=== PATIENT | male | born 1950 | race Caucasian/White ===

== ENCOUNTER → 2020-09-15 | Outpatient (REF) | payer MEDICARE, BC ==
[2020-09-15 12:04] LABS: APPEARANCE, URINE CLEAR (CLEAR); BACTERIA, URINE AUTO NEGATIVE (NEGATIVE); BILIRUBIN, URINE AUTO NEGATIVE (NEGATIVE); BLOOD, URINE BLOOD NEGATIVE (NEGATIVE); COLOR, URINE YELLOW (YELLOW); GLUCOSE, URINE (UA) AUTO NEGATIVE (NEGATIVE); KETONE, URINE AUTO NEGATIVE (NEGATIVE); LEUKOCYTE ESTERASE, URINE AUTO NEGATIVE (NEGATIVE); NITRITE, URINE AUTO NEGATIVE (NEGATIVE); PROTEIN, URINE AUTO NEGATIVE (NEGATIVE); RBC, URINE AUTO 1 /HPF (0-3); SPECIFIC GRAVITY URINE AUTO 1.016 (1.002-1.035); SQUAMOUS EPITHELIAL CELL UR AU 0 /HPF (0-6); UROBILINOGEN, URINE AUTO 0.2 mg/dL (0.0-2.0); WBC, URINE AUTO 1 /HPF (0-3)
== END ==
LOC: M LAB REF 11:45
PROVIDERS: ATTEND Internal Medicine
DX: Z01.818 Encounter for other preprocedural examination (principal); N39.0 Urinary tract infection, site not specified

== ENCOUNTER → 2022-02-26 | Outpatient (REF) | payer MEDICARE, BC | LOC: M LAB REF 16:15 | PROVIDERS: ATTEND Internal Medicine | DX: M25.50 Pain in unspecified joint (principal) ==

== ENCOUNTER → 2022-03-05 | Outpatient (CLI) | payer MEDICARE, BC | LOC: M WUC 08:03 | PROVIDERS: ATTEND Internal Medicine | DX: M79.642 Pain in left hand (principal); M79.641 Pain in right hand; M19.031 Primary osteoarthritis, right wrist; M19.032 Primary osteoarthritis, left wrist ==

== ENCOUNTER → 2022-03-09 | Outpatient (CLI) | payer MEDICARE, BC ==
[2022-03-09 12:17] LABS: BASO # 0.1 10^3/uL (0.0-0.2); BASO % 1.4 % (0.0-1.0); EOS # 0.3 10^3/uL (0.0-0.5); EOS % 3.2 % (0.0-3.0); HEMATOCRIT 50.6 % (42.0-52.0); HEMOGLOBIN 16.4 g/dl (13.5-17.5); LYMPH # 1.9 10^3/uL (1.5-5.0); LYMPH % 19.9 % (24.0-44.0); MEAN CORPUSCULAR HEMOGLOBIN 29.3 pg (27.0-33.0); MEAN CORPUSCULAR HGB CONC 32.4 g/dl (32.0-36.5); MEAN CORPUSCULAR VOLUME 90.4 fl (80.0-96.0); MONO % 10.6 % (2.0-8.0); NEUTROPHILS % 64.3 % (36.0-66.0); PLATELET COUNT, AUTOMATED 254 10^3/uL (150-450); WHITE BLOOD COUNT 9.4 10^3/uL (4.0-10.0)
[2022-03-09 12:46] LABS: ALBUMIN 3.9 GM/DL (3.2-5.2); ALT/SGPT 77 U/L (12-78); BILIRUBIN,TOTAL 0.5 MG/DL (0.2-1.0); BLOOD UREA NITROGEN 16 MG/DL (7-18); CALCIUM LEVEL 9.5 MG/DL (8.8-10.2); CARBON DIOXIDE LEVEL 29 MEQ/L (21-32); CHLORIDE LEVEL 104 MEQ/L (98-107); CREATININE FOR GFR 0.74 MG/DL (0.70-1.30); GLOMERULAR FILTRATION RATE > 60.0 (>49); GLUCOSE, FASTING 96 MG/DL (70-100); POTASSIUM SERUM 4.1 MEQ/L (3.5-5.1); SODIUM LEVEL 137 MEQ/L (136-145); TOTAL PROTEIN 7.8 GM/DL (6.4-8.2)
[2022-03-09 13:46] LABS: HEPATITIS B SURFACE ANTIGEN NEGATIVE (NEGATIVE)
[2022-03-09 14:11] LABS: HEPATITIS C VIRUS ABY INDEX < 0.0 INDEX (<0.8)
[2022-03-09 14:13] LABS: HEPATITIS B CORE ANTIBODY IGM NEGATIVE (NEGATIVE)
[2022-03-09 14:14] LABS: HIV 1&2 SCREEN CENTAUR NEGATIVE (NEGATIVE)
== END ==
LOC: M LAB 10:43
PROVIDERS: ATTEND Nurse Practitioner Family
DX: L40.9 Psoriasis, unspecified (principal)

== ENCOUNTER 2023-02-04 09:43 | Emergency (ER) | payer MEDICARE, BC ==
[~2023-02-04] VITALS: Ht 172.7 cm; Wt 127.3 kg
[~2023-02-04 09:43] MED LIST: PERC5TAB12 PO
[2023-02-04] MEDS ORDERED: FENO160T10 (10:24)
[2023-02-04] MEDS ORDERED: COSE1INJ4 (10:24)
[2023-02-04] MEDS ORDERED: LISI40TA4 (10:24)
[2023-02-04] MEDS ORDERED: LEVO75TA4 (10:24)
[2023-02-04] MEDS ORDERED: TRIA1CR80 (10:24)
[2023-02-04] MEDS ORDERED: CICL0.7739 (10:24)
[2023-02-04] MEDS ORDERED: CYCL-707 (10:24)
[2023-02-04] MEDS ORDERED: INDO-16 (10:24)
[2023-02-04] MEDS ORDERED: LIDOCAINE 5% (LIDODERM) PATCH TD ONE (11:30)
[2023-02-04] MEDS ORDERED: diazePAM 10MG/2ML SYRINGE IV ONE ×2 (11:30→12:50)
[2023-02-04 12:14] LABS: HEMATOCRIT 44.5 % (42.0-52.0); HEMOGLOBIN 14.8 g/dl (13.5-17.5); MEAN CORPUSCULAR HEMOGLOBIN 30.1 pg (27.0-33.0); MEAN CORPUSCULAR HGB CONC 33.3 g/dl (32.0-36.5); MEAN CORPUSCULAR VOLUME 90.6 fl (80.0-96.0); PLATELET COUNT, AUTOMATED 194 10^3/uL (150-450); RED BLOOD COUNT 4.91 10^6/uL (4.30-6.10); WHITE BLOOD COUNT 12.1 10^3/uL (4.0-10.0)
[2023-02-04 12:46] LABS: LYMPHOCYTES 5 % (16-44); MONOCYTES 8 % (0-5); NEUTROPHILS 86 % (28-66)
[2023-02-04 12:47] LABS: PLATELET ESTIMATE NORMAL (NORMAL)
[2023-02-04] MEDS ORDERED: KETOROLAC 30 MG/ML 1ML VIAL IV ONE (12:50)
[2023-02-04 12:55] LABS: ERYTHROCYTE SEDIMENTATION RATE 111 mm/hr (0-20)
[2023-02-04 13:24] LABS: BLOOD UREA NITROGEN 18 MG/DL (9-23); CALCIUM LEVEL 8.4 MG/DL (8.3-10.6); CARBON DIOXIDE LEVEL 24 MMOL/L (20-31); CHLORIDE LEVEL 99 MMOL/L (98-107); GLOMERULAR FILTRATION RATE > 60.0 (>42); GLUCOSE, FASTING 144 MG/DL (74-106); POTASSIUM SERUM 4.2 MMOL/L (3.5-5.1); SODIUM LEVEL 134 MMOL/L (136-145)
[2023-02-04] MEDS ORDERED: NS IV ONE (16:15)
[2023-02-04] MEDS ORDERED: LORazepam 1 MG TAB PO STA (17:10)
[2023-02-04] MEDS ORDERED: MORPHINE 4 MG/ML 1ML VIAL IV ONE ×2 (17:50→19:00)
[2023-02-04] MEDS ORDERED: LORazepam 2 MG TAB PO STA (19:14)
[2023-02-04 19:30] LABS: RSV AMPLIFICATION NEGATIVE (NEGATIVE)
[2023-02-04] MEDS ORDERED: fentaNYL 100 MCG/2 ML INJECTION IV ONE (20:15)
[2023-02-04] MEDS ORDERED: PANTOPRAZOLE 40MG VIAL IV ONE (20:15)
[2023-02-04] MEDS ORDERED: PROHANCE 279.3MG/ML 5ML VIAL As Ordered ONE (21:14)
[2023-02-04] MEDS ORDERED: PROHANCE 279.3MG/ML 15ML VIAL As Ordered ONE (21:14)
[2023-02-04] MEDS ORDERED: LIDOCAINE 2% 5ML JELLY UROJET TOP ONE (22:10)
[2023-02-04] MEDS ORDERED: ACETAMINOPHEN 500 MG TAB PO ONE (22:10)
[2023-02-04] MEDS ORDERED: VANCOMYCIN HCL 2,000 MG in D5W 500 ML IV ONE (23:15)
[2023-02-04] MEDS ORDERED: CEFEPIME HCL 2 GM in D5W MINI-BAG PLUS 50 ML IV ONE (23:15)
[2023-02-05] MEDS ORDERED: VANCOMYCIN HCL 1,000 MG, VIAL MATE ADAPTER 1 EACH in D5W 250 ML IV ONE ×4 (01:00)
[2023-02-05] MEDS ORDERED: HYDROMORPHONE HCL 0.5 MG/ 0.5 ML SYRINGE IV ONE (05:10)
[2023-02-05 06:34] VITALS: BP 116/55; TEMP 99; O2SAT 95
== END 2023-02-05 06:37 | disposition short-term general hospital (02) ==
LOC: EDBD 09:43 → M ED 09:43
DX: M00.88 Arthritis due to other bacteria, vertebrae (principal); M54.50 Low back pain, unspecified; I10 Essential (primary) hypertension; E78.5 Hyperlipidemia, unspecified; F17.200 Nicotine dependence, unspecified, uncomplicated; Z79.811 Long term (current) use of aromatase inhibitors; Z79.899 Other long term (current) drug therapy
CPT/HCPCS: 51702; 71045; 72131; 72148; 80048; 81001; 83605; 85025; 85652; 86140; 87040; 87077; 87088; 87186; 87631; 93041; 93971; 94760; 99285; C9113; J0692; J1170; J1885; J3010; J3360

== ENCOUNTER → 2023-03-28 | Outpatient (CLI) | payer MEDICARE, BC ==
[~2023-03-28] MED LIST changes: +CICL0.7739; +COSE1INJ4; +CYCL-707; +FENO160T10; +INDO-16; +LEVO75TA4; +LISI40TA4; +TRIA1CR80
[2023-03-28 13:54] LABS: BASO # 0.1 10^3/uL (0.0-0.2); BASO % 1.2 % (0.0-1.0); EOS # 0.3 10^3/uL (0.0-0.5); EOS % 3.5 % (0.0-3.0); HEMATOCRIT 48.3 % (42.0-52.0); HEMOGLOBIN 15.6 g/dl (13.5-17.5); LYMPH % 23.6 % (24.0-44.0); MEAN CORPUSCULAR HEMOGLOBIN 30.1 pg (27.0-33.0); MEAN CORPUSCULAR HGB CONC 32.3 g/dl (32.0-36.5); MEAN CORPUSCULAR VOLUME 93.1 fl (80.0-96.0); MONO # 0.8 10^3/uL (0.0-0.8); MONO % 9.7 % (2.0-8.0); NEUTROPHILS # 5.4 10^3/uL (1.5-8.5); NEUTROPHILS % 61.7 % (36.0-66.0); PLATELET COUNT, AUTOMATED 266 10^3/uL (150-450); RED BLOOD COUNT 5.19 10^6/uL (4.30-6.10); WHITE BLOOD COUNT 8.7 10^3/uL (4.0-10.0)
[2023-03-28 14:43] LABS: ERYTHROCYTE SEDIMENTATION RATE 65 mm/hr (0-20)
== END ==
LOC: M PLALAB 12:07 → M PLAIMG 12:07
PROVIDERS: ATTEND Internal Medicine Infectious Disease
DX: M46.47 Discitis, unspecified, lumbosacral region (principal); M51.36 Other intervertebral disc degeneration, lumbar region; M43.16 Spondylolisthesis, lumbar region

== ENCOUNTER → 2023-07-10 | Outpatient (REF) | payer MEDICARE, BC ==
[2023-07-10 18:49] LABS: PERCENT SATURATION 25.2 % (19.7-50.0)
[2023-07-10 18:52] LABS: FERRITIN 84.2 NG/ML (10.5-307.3)
== END ==
LOC: M LAB REF 17:22
PROVIDERS: ATTEND Internal Medicine
DX: D64.9 Anemia, unspecified (principal)

== ENCOUNTER 2023-11-21 06:56 | Day surgery (SDC) | payer MEDICARE, BC, OTHER ==
[~2023-11-21] VITALS: Ht 172.7 cm; Wt 123.7 kg
[~2023-11-21 06:56] MED LIST changes: +BREO1INH INH; +COSE1INJ SC; -CYCL-707; +CYCL-707 PO; -FENO160T10; +FENO160T10 PO; -LEVO75TA4; +LEVO75TA4 PO; -LISI40TA4; +LISI40TA4 PO; +METF500T13 PO; +PRIL20TA2 PO
[2023-11-21] MEDS: NS 1,000 ML IV ONE (07:32)
[2023-11-21] MEDS ORDERED: LIDOCAINE 2% 100MG/5ML SDV (FOR ANES.) As Ordered ONE (08:05)
[2023-11-21] MEDS ORDERED: propofoL 200 MG/20 ML VIAL As Ordered ONE (08:06)
[2023-11-21 09:26] VITALS: BP 111/74; O2SAT 96
== END 2023-11-21 09:45 | disposition home or self-care (01) ==
LOC: M OPP 06:56
PROVIDERS: ATTEND Internal Medicine Gastroenterology
DX: Z12.11 Encounter for screening for malignant neoplasm of colon (principal); D12.2 Benign neoplasm of ascending colon; K63.5 Polyp of colon; K64.8 Other hemorrhoids; K57.30 Diverticulosis of large intestine without perforation or abscess without bleeding; I10 Essential (primary) hypertension; E03.9 Hypothyroidism, unspecified; Z79.82 Long term (current) use of aspirin; Z79.890 Hormone replacement therapy; Z79.899 Other long term (current) drug therapy; Z87.891 Personal history of nicotine dependence

== ENCOUNTER 2023-11-30 08:19 | Emergency (ER) | payer OTHER, BC ==
[~2023-11-30] VITALS: Ht 172.7 cm; Wt 127.0 kg
[2023-11-30] MEDS: PERCOCET 5MG/325MG TAB PO ONE (10:50)
[2023-11-30 12:53] VITALS: BP 124/70; TEMP 96.8; O2SAT 100
== END 2023-11-30 12:54 | disposition home or self-care (01) ==
LOC: M ED 08:19
DX: M77.01 Medial epicondylitis, right elbow (principal); M67.823 Other specified disorders of tendon, right elbow; R22.31 Localized swelling, mass and lump, right upper limb; I10 Essential (primary) hypertension; E78.5 Hyperlipidemia, unspecified; E03.9 Hypothyroidism, unspecified; K27.9 Peptic ulcer, site unspecified, unspecified as acute or chronic, without hemorrhage or perforation; F10.10 Alcohol abuse, uncomplicated; Z87.891 Personal history of nicotine dependence; Z79.811 Long term (current) use of aromatase inhibitors; Z79.899 Other long term (current) drug therapy

== ENCOUNTER → 2025-01-19 | Outpatient (CLI) | payer MEDICARE, OTHER ==
[~2025-01-19] MED LIST changes: +LISI40TA10 PO; -LISI40TA4 PO
== END ==
LOC: M CARPUL 12:37
PROVIDERS: ATTEND Internal Medicine
DX: R01.1 Cardiac murmur, unspecified (principal)

== ENCOUNTER → 2025-02-25 | Outpatient (CLI) | payer OTHER | LOC: M WUC 10:17 | DX: R05.9 Cough, unspecified (principal); R06.02 Shortness of breath ==

== ENCOUNTER → 2025-03-30 | Outpatient (REF) | payer OTHER | LOC: M LAB REF 13:07 | PROVIDERS: ATTEND Internal Medicine Critical Care Medicine | DX: J06.9 Acute upper respiratory infection, unspecified (principal) ==

== ENCOUNTER → 2025-03-30 | Outpatient (REF) | payer OTHER | LOC: M LAB REF 12:59 | PROVIDERS: ATTEND Internal Medicine Critical Care Medicine | DX: J06.9 Acute upper respiratory infection, unspecified (principal) ==

== ENCOUNTER → 2025-04-01 | Outpatient (CLI) | payer OTHER | LOC: M PLAIMG 09:56 | PROVIDERS: ATTEND Internal Medicine | DX: R05.3 Chronic cough (principal); K80.20 Calculus of gallbladder without cholecystitis without obstruction; R91.8 Other nonspecific abnormal finding of lung field ==

== ENCOUNTER → 2025-05-13 | Outpatient (CLI) | payer OTHER | LOC: M WUC 09:28 | PROVIDERS: ATTEND Emergency Medicine | DX: J06.9 Acute upper respiratory infection, unspecified (principal) ==

== ENCOUNTER → 2025-05-26 | Outpatient (REF) | payer OTHER | LOC: M LAB REF 17:11 | PROVIDERS: ATTEND Internal Medicine | DX: Z87.01 Personal history of pneumonia (recurrent) (principal) ==